=== PATIENT | female | born 1945 | race Caucasian/White ===

== ENCOUNTER 2024-10-29 20:36 | Emergency (ER) | payer MEDICARE, SELFPAY ==
[2024-10-29 21:13] VITALS: BP 155/84; PULSE 78; RESP 18; TEMP 36.6; O2SAT 97; BMI 20.8
--- NOTE | 2024-10-29 21:16 | W.ED.EPISTAX ---
HPI - Epistaxis General: Chief complaint: Epistaxis Stated complaint: nose bleed 2 hr and yesterday Time Seen by Provider: 10/29/24 21:15 History of Present Illness: 79-year-old female presents emergency room she had several nosebleeds yesterday and then this evening it stopped spontaneously with measures at home. She not on any anticoagulants not on any antiplatelet drugs. No difficulty breathing no fever sweats chills sinus pressure pain. No active bleeding at time and she seems Associated symptoms: Deny fever(s) Related Data Home Medications ?Medication ?Instructions ?Recorded ?Confirmed ferrous sulfate 325 mg (65 mg 325 mg PO DAILY 10/28/24 10/28/24 iron) tablet levothyroxine 25 mcg tablet 25 mcg PO DAILY 10/28/24 10/28/24 (Levoxyl) meloxicam 7.5 mg tablet 7.5 mg PO DAILY 10/28/24 10/28/24 memantine 10 mg tablet (Namenda) 10 mg PO BID 10/28/24 10/28/24 Previous Rx's ?Medication ?Instructions ?Recorded amoxicillin 875 mg-potassium 1 tab PO BID #10 tabs 10/29/24 clavulanate 125 mg tablet mupirocin 2 % topical ointment 1 applic topical BID #22 grams 10/29/24 (Centany) Allergies Allergy/AdvReac Type Severity Reaction Status Date / Time Latex, Natural Rubber Allergy Intermediate blisters Verified 10/29/24 21:16 Sulfa (Sulfonamide Allergy Mild vomiting Verified 10/29/24 21:16 Antibiotics) Review of Systems Const: Denies: fever(s) or chills ENMT: Reports: epistaxis Card: Denies: chest pain Resp: Denies: dyspnea GI: Denies: abdominal pain : Denies: dysuria, urinary frequency or urinary urgency Musc: Denies: neck pain or back pain Skin/Breast: Denies: rash PFSH ED PFSH: Social History Smoking and tobacco/nicotine status: never used tobacco/nicotine Physical Exam Const: COMMON NORMALS: no acute distress GENERAL APPEARANCE: cooperative and comfortable ORIENTATION/CONSCIOUSNESS: Yes awake, Yes oriented to person, Yes oriented to place and Yes oriented to time HENMT: COMMON NORMALS: normocephalic, atraumatic and hearing grossly normal bilaterally HEAD & SCALP: normocephalic and atraumatic OTHER: Irritation of the anterior plexus of the septum most prominent on the left no active bleeding at this time Resp: COMMON NORMALS: normal respiratory effort, No retractions, No use of accessory muscles and clear to auscultation bilaterally AUSCULTATION: clear to auscultation bilaterally Cardio: COMMON NORMALS: regular rate, regular rhythm and No murmurs present (Cardio) RATE: regular rate RHYTHM: regular rhythm Extremity: COMMON NORMALS: normal to inspection, capillary refill normal, no clubbing, cyanosis or edema, no calf tenderness and no pedal edema Neuro: SENSORIUM/ORIENTATION: Yes oriented to person, Yes oriented to place and Yes oriented to time Skin: COMMON NORMALS: no rashes or lesions noted GENERAL SKIN EXAM: no rashes or lesions noted Course Vital Signs: Vital signs: Vital Signs Temperature 97.8 F 10/29/24 21:13 Pulse Rate 78 10/29/24 21:13 Respiratory Rate 18 10/29/24 21:13 Blood Pressure 155/84 10/29/24 21:13 Pulse Oximetry 97 10/29/24 21:13 Oxygen Delivery Me thod Room Air 10/29/24 21:13 MDM - Epistaxis Medical Decision Making No active bleeding at this time CBC and INR are normal. Will discharge patient home apply topical antibiotic ointment to inside the nares twice daily Augmentin 1 tab twice daily for 5 days avoid blowing or picking at nose. Follow-up with primary care if persist or return to the emergency room if begins bleeding again. Lab Data 10/29/24 21: Laboratory Results WBC 9.37 10^3/uL (3.29-11.43) 10/29/24 21: RBC 4.53 10^6/uL (3.85-5.65) 10/29/24 21: Hgb 13.60 g/dL (11.27-16.99) 10/29/24: Hct 41.4 % (36-47) 10/29/24 21: MCV 91.4 fl (85-98) 10/29/24 21: MCH 30.0 pg (27-33) 10/29/24 21: MCHC 32.9 g/dL (30-55) 10/29/24 21: RDW 12.2 % (12.1-15.1) 10/29/24 21: Plt Count 231 10^3/cmm (157-399) 10/29/24 21: MPV 9.8 fL (7.4-10.4) 10/29/24 21: Neut % (Auto) 73.7 % 10/29/24 21: Lymph % (Auto) 15.2 % 10/29/24 21:26 Pratt % (Auto) 6.3 % 10/29/24 21:26 Eos % (Auto) 3.9 % 10/29/24 21:26 Baso % (Auto) 0.6 % 10/29/24 21: Neut # (Auto) 6.90 10^3/uL (1.8-7.7) 10/29/24 21: Lymph # (Auto) 1.4 10^3/uL (0.8-4.8) 10/29/24 21: Pratt # (Auto) 0.6 10^3/uL (0.2-0.9) 10/29/24 21:26 Eos # (Auto) 0.4 10^3/uL (0.0-0.8) 10/29/24 21: Baso # (Auto) 0.1 10^3/uL (0.0-0.1) 10/29/24 21: Nucleated RBC % (auto) 0 % 10/29/24 21: Nucleated RBCs # 0.0 /100WBC 10/29/24 21: PT 13.10 SECONDS (12.1-14.9) 10/29/24 21:26 INR 0.93 (0.8-1.2) 10/29/24 21:26 No radiology studies performed this visit Discharge Plan Discharge Patient Disposition: Home Clinical Impression: Epistaxis Condition: Stable Prescriptions: New mupirocin [Centany] 2 % ointment 1 applic topical BID Qty: 22 0RF amoxicillin-pot clavulanate 875-125 mg tablet 1 tab PO BID Qty: 10 0RF No Action meloxicam 7.5 mg tablet 7.5 mg PO DAILY memantine [Namenda] 10 mg tablet 10 mg PO BID levothyroxine [Levoxyl] 25 mcg tablet 25 mcg PO DAILY ferrous sulfate 325 mg (65 mg iron) tablet 325 mg PO DAILY Discharge Orders: Discharge ED (Routine); Ordered 10/29/24 Ordered By: Rocky Caballero Discharge Diet: Usual diet Discharge Activity: Resume usual activity Patient Instructions: Nosebleed (ED), Epistaxis - Adult, Opioid Safety, Pain Management Activity Restrictions/Additional Instructions: Thank you for choosing [facility] for your healthcare needs today. It is very important that you follow up as instructed or that you return to the Emergency Department should you have concerns or if your condition changes or worsens in any way. You were seen in the emergency room for nosebleed. When you are seen there is no active bleeding. Recommend avoiding picking at the nose or blowing your nose as this can cause increased bleeding. Gently apply the topical ointment inside your nose with a Q-tip twice a day. Also recommend you take the oral antibiotic 1 pill twice a day for 5 days. If you continue to have problems he can return to the emergency room or follow-up with your primary care doctor and they can refer you to ear nose and throat physician for further evaluations Print Language: Croatian Coding Level of Care Code ED Spanish Professor for Karina Sterling
[2024-10-29 21:35] LABS: Basophils # 0.1 10^3/uL (0.0-0.1); Basophils % 0.6 %; Eosinophils # 0.4 10^3/uL (0.0-0.8); Eosinophils % 3.9 %; Hematocrit 41.4 % (36-47); Lymphocytes # 1.4 10^3/uL (0.8-4.8); Lymphocytes % 15.2 %; Mean Corpuscular HGB Conc 32.9 g/dL (30-55); Mean Corpuscular Volume 91.4 fl (85-98); Mean Platelet Volume 9.8 fL (7.4-10.4); Monocytes # 0.6 10^3/uL (0.2-0.9); Monocytes % 6.3 %; Neutrophils % 73.7 %; Nucleated Red Blood Cells % 0 %; Platelet Count 231 10^3/cmm (157-399); Red Blood Count 4.53 10^6/uL (3.85-5.65); Red Cell Distribution Width 12.2 % (12.1-15.1); White Blood Count 9.37 10^3/uL (3.29-11.43)
[2024-10-29 21:50] LABS: INR 0.93 (0.8-1.2)
== END 2024-10-29 22:29 | disposition home or self-care (01) ==
PROVIDERS: Emergency Provider Family Medicine
DX: R04.0 Epistaxis (principal)
CPT/HCPCS: 36415; 85025; 85610; 99283

== ENCOUNTER 2025-02-01 11:02 | Outpatient (CLI) | payer MEDICARE, SELFPAY ==
--- NOTE | 2025-02-01 11:00 | MM_ITS ---
WS: [id number] LEFT 3D TOMOSYNTHESIS DIGITAL MAMMOGRAPHY WITH CAD CLINICAL INFORMATION: hx of breast cancer; does yearly screening on left HISTORY: RIGHT mastectomy COMPARISON: 2023 TECHNIQUE: 3 views of the left breast were obtained. FINDINGS: The left breast is composed of heterogeneous fibroglandular density tissue, which can limit the detection of small underlying mass lesions. Vascular calcification. No suspicious focal mass, asymmetry, calcifications, or architectural distortion. No evidence of malignancy. MM/MM diag LT tomosynthesis [id number] IMPRESSION: DENSITY: The breasts are heterogeneously dense, which may obscure small masses. BI-RADS: 2 - Benign FOLLOW UP: 1 Year Follow-up Recommend return to annual diagnostic mammography.
== END 2025-02-01 11:03 | disposition home or self-care (01) ==
LOC: RAD 11:03
PROVIDERS: PCP Family Medicine; Visit Provider Family Medicine
DX: Z85.3 Personal history of malignant neoplasm of breast (principal); R92.332 Mammographic heterogeneous density, left breast; Z90.11 Acquired absence of right breast and nipple
CPT/HCPCS: 77061; G0279

== ENCOUNTER → 2025-02-09 15:04 | Outpatient (BNVA) | payer MEDICARE, SELFPAY | PROVIDERS: PCP Family Medicine; Visit Provider Family Medicine | DX: E03.9 Hypothyroidism, unspecified (principal); M81.0 Age-related osteoporosis without current pathological fracture; K21.9 Gastro-esophageal reflux disease without esophagitis; D50.8 Other iron deficiency anemias | CPT/HCPCS: 80053; 82306; 84439; 84443; 85025 ==